=== PATIENT | male | born 1980 | race Two or more races ===

== ENCOUNTER 2020-02-14 13:45 | Outpatient (CLI) | payer OTHER | END 2020-02-14 14:00 | disposition home or self-care (01) | LOC: OFIC 805 13:45 | PROVIDERS: ATTEND Otolaryngology Otology & Neurotology | DX: H91.22 Sudden idiopathic hearing loss, left ear (principal); H93.12 Tinnitus, left ear ==

== ENCOUNTER 2020-02-18 10:34 | Day surgery (SDC) | payer OTHER ==
[2020-02-18] MEDS ORDERED: CIPRODEX OTIC7.5 ML OT (15:10)
== END 2020-02-18 17:25 | disposition home or self-care (01) ==
LOC: CIR.AMB 10:34
PROVIDERS: ATTEND Otolaryngology Otology & Neurotology
DX: H91.22 Sudden idiopathic hearing loss, left ear (principal); Z20.828 Contact with and (suspected) exposure to other viral communicable diseases

== ENCOUNTER → 2020-02-28 | Outpatient (CLI) | payer OTHER ==
[~2020-02-28] MED LIST: CIPRODEX OTIC7.5 ML OT
== END | disposition home or self-care (01) ==
LOC: OFIC 805 15:00
PROVIDERS: ATTEND Otolaryngology Otology & Neurotology
DX: H93.12 Tinnitus, left ear (principal); H91.22 Sudden idiopathic hearing loss, left ear